=== PATIENT | female | born 1950 | race Caucasian/White ===

== ENCOUNTER 2022-08-26 15:34 | Emergency (ER) | payer MEDICARE, OTHER, SELFPAY ==
[2022-08-26 16:05] VITALS: BP 144/78; PULSE 89; RESP 16; TEMP 36.9; O2SAT 96; BMI 28.3
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
[2022-08-26] MEDS: HYDROcodone-acetaminophen 5-325 mg Tablet 1 TAB PO (17:59)
--- NOTE | 2022-09-02 17:23 | DCPLANNER ---
09.01. - patient called due to no primary care physician - patient stated that she sees Elizabeth Gupta
== END 2022-08-26 18:01 | disposition home or self-care (01) ==
PROVIDERS: Emergency Provider Physician Assistant
DX: S22.42XA Multiple fractures of ribs, left side, initial encounter for closed fracture (principal); V59.40XA Driver of pick-up truck or van injured in collision with unspecified motor vehicles in traffic accident, initial encounter
CPT/HCPCS: 71101; 72072; 72100; 99283

== ENCOUNTER 2022-09-17 16:24 | Outpatient (CLI) | payer MEDICARE, OTHER, SELFPAY ==
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
--- NOTE | 2022-09-17 16:39 | CT_ITS ---
WS: [id number] CT THORACIC SPINE TECHNIQUE: Noncontrast CT of the thoracic spine with coronal and sagittal reformatted images. CLINICAL INFORMATION: THORACIC SPINE PAIN COMPARISON: None. DLP: 631.[address] scans at [facility] use at least one of these dose optimization techniques: automated e xposure control; mA and/or kV adjustment per patient size (includes targeted exams where dose is matc hed to clinical indication); or iterative reconstruction. FINDINGS: Mild thoracolumbar curve. Mild thoracic kyphosis. No acute compression fractures. No high-grade centr al canal stenosis. No acute compression fractures. Mild spondylitic changes. Moderate facet arthropathy in the lower tho racic spine. Mild bony foraminal narrowing RIGHT T3-T4 RIGHT T4-T5, LEFT T6-T7 LEFT T7-T8 LEFT T8-T9 LEFT T9-T10 RIGHT T10-T11 Adrenal glands are normal. Small esophageal hiatal hernia. Partially visualized RIGHT renal low-atten uation lesions likely renal cysts but incompletely visualized. CT/CT thoracic spin wo con* [id number] IMPRESSION: 1. Mild thoracolumbar curve. Mild thoracic kyphosis. 2. No acute compression fractures. 3. No significant central canal stenosis. 4. Moderate facet arthropathy in the lower thoracic spine. 5. Mild bony foraminal narrowing RIGHT T3-T4 RIGHT T4-T5, LEFT T6-T7 LEFT T7- T8 LEFT T8-T9 LEFT T9-T10 RIGHT T10-T11 6. No visualized large disc protrusions 7. Partially visualized low-attenuation RIGHT renal lesions some are incomplet kate visualized. This can be further evaluated with ultrasound or contrast-enhan felicia CT abdomen pelvis
== END 2022-09-17 16:25 | disposition home or self-care (01) ==
LOC: RAD 16:28
PROVIDERS: Visit Provider Nurse Practitioner Family
DX: M47.814 Spondylosis without myelopathy or radiculopathy, thoracic region (principal); M48.04 Spinal stenosis, thoracic region; M40.204 Unspecified kyphosis, thoracic region; S22.41XA Multiple fractures of ribs, right side, initial encounter for closed fracture; X58.XXXA Exposure to other specified factors, initial encounter
CPT/HCPCS: 71250; 72128

== ENCOUNTER 2023-01-29 12:38 | Outpatient (CLI) | payer MEDICARE, OTHER, SELFPAY ==
--- NOTE | 2023-01-29 12:56 | CT_ITS ---
WS: [id number] CT LUMBAR SPINE TECHNIQUE: Noncontrast CT of the lumbar spine with coronal and sagittal reformatted images. CLINICAL INFORMATION: VERTEBROGENIC LOW BACK PAIN COMPARISON: None. DLP: 727.[address] scans at [facility] use at least one of these dose optimization techniques: automated e xposure control; mA and/or kV adjustment per patient size (includes targeted exams where dose is matc hed to clinical indication); or iterative reconstruction. FINDINGS: Lumbar curve. No acute compression. No high-grade central canal stenosis. L1-L2: Slight narrowing of the right subarticular recess. Mild facet arthropathy. Mild right and no s ignificant left foraminal narrowing. Mild facet arthropathy. Slight retrolisthesis L1 on L2 L2-L3: Mild annular bulging. Moderate facet arthropathy. Slight narrowing of the subarticular recess bilaterally. Foramen are patent. L3-L4: Mild annular bulging. Slight narrowing of the subarticular recess bilaterally. Moderate facet arthropathy. Foramen are patent. L4-L5: Mild annular bulging. Moderate facet arthropathy. Spinal canal and foramen are patent. L5-S1: Mild annular bulging. Moderate facet arthropathy. Spinal canal and foramen are patent. Cholecystectomy clips. Sigmoid reticulosis. Partially visualized right renal cysts. Visualized pelvic bony structures: Normal. Paravertebral soft tissues: Normal. IMPRESSION: 1. Mild lumbar curve. No acute compression. No high-grade central canal stenosis. 2. Mild disc bulging L1-2 with slight retrolisthesis and narrowing of the right greater than left hannon barticular recess. Mild right foraminal narrowing. 3. Mild annular bulging L3-4 and L4-5 with slight narrowing of the subarticular recess. 4. Mild annular bulging L5-S1 with slight encroachment on traversing S1 nerve roots. 5. Moderate facet arthropathy L3-L5.
== END 2023-01-29 12:39 | disposition home or self-care (01) ==
PROVIDERS: Visit Provider Nurse Practitioner
DX: M54.51 Vertebrogenic low back pain (principal); M51.37 Other intervertebral disc degeneration, lumbosacral region; M47.816 Spondylosis without myelopathy or radiculopathy, lumbar region
CPT/HCPCS: 72131